=== PATIENT | female | born 1990 | race Caucasian/White ===

== ENCOUNTER → 2024-05-21 14:16 | Outpatient (REF) | payer OTHER, SELFPAY | LOC: RAD 14:16 | PROVIDERS: ATTENDING PHYSICIAN Student in an Organized Health Care Education/Training Program | DX: R35.0 Frequency of micturition (principal); R10.9 Unspecified abdominal pain | CPT/HCPCS: 76775 ==

== ENCOUNTER → 2024-09-08 07:51 | Outpatient (REF) | payer OTHER, SELFPAY | LOC: HWRAD 07:51 | PROVIDERS: ATTENDING PHYSICIAN Obstetrics & Gynecology; FAMILY PHYSICIAN Family Medicine | DX: C56.2 Malignant neoplasm of left ovary (principal); C56.1 Malignant neoplasm of right ovary | CPT/HCPCS: 71260; 74177; Q9967 ==

== ENCOUNTER 2024-11-30 06:43 | Emergency (ER) | payer OTHER, SELFPAY ==
[2024-11-30 06:49] VITALS: BP 103/80
--- NOTE | 2024-11-30 08:07 | ED.GENMED ---
History of Present Illness
General
Chief Complaint: Skin Surface Trauma
Source: patient
Exam Limitations: none
Time Seen by Provider: 11/30/24 07:44
History of Present Illness
History of Present Illness:
33-year-old female [id number] was cutting frozen chicken and her hand slipped and her hand slid down the blade. She presents with laceration to the right palm. She states she feels numb in her index finger and is having trouble opening
her hand all the way. Last tetanus was about 7 years ago. She is healthy otherwise. No other complaints
Past History
Past History
ED Past Medical History: Psychiatric (Panic disorder)
ED Past Surgical History: Other
Social History
Tobacco: Former smoker
Alcohol: Occasional
Drug: None
Living: with family
Family History
Family History: Other
Phy Exam
Physical Exam
Physical Exam:
General: Well-appearing female no acute distress
HEENT normocephalic atraumatic
Skin: 5 cm transverse laceration across the right palm proximal to the MCP flexion crease and abuts the thenar eminence. There is tendons noted through the wound. No significant bleeding currently. She has brisk capillary refill to all of her
fingers. She is having trouble abducting her fingers. She is able to initiate flexion of the FDS and FDP of all nerves on the right hand. She is able to move her thumb. She has decreased sensation to light touch over the radial aspect of the
right index finger
Course
Orders/Labs/Results
Orders:
Orders
11/30/24 08:04
Tetanus/Diphth/Acelpertussis [Adacel] 0.5 ml IM .ONCE ONE
11/30/24 09:00
Cephalexin Monohydrate [Keflex] 500 mg PO NOW STA
Vital Signs
Initial and Last Documented VS:
Initial Vital Signs
Temp Pulse Resp BP Pulse Ox
97.6 F 118 22 103/80 100
11/30/24 06:49 11/30/24 06:49 11/30/24 06:49 11/30/24 06:49 11/30/24 06:49
Last Documented Vital Signs
Temp Pulse Resp BP Pulse Ox
97.6 F 118 22 103/80 100
11/30/24 06:49 11/30/24 06:49 11/30/24 06:49 11/30/24 06:49 11/30/24 06:49
MDM/Problems Addressed
Differential Diagnosis Includes:
Right palmar laceration. Possible tendon and nerve involvement. Tetanus vaccine updated. Picture and video footage of the wound and function of the hand was taken and sent to orthopedics, hand surgeon.
*Critical Care Note
Total Time (30-74mins, 75-104mins- exclusive of procedures): Not Applicable
Update Note
Update Note:
Discussed findings with orthopedics who recommended loose closure of the skin and they will follow-up to plan wound exploration in the OR. Relayed this to the patient. The wound was copiously irrigated with saline solution then dried and closed
with 4-0 Prolene sutures in a simple interrupted fashion and a loose fashion to approximate the skin edge. Her hand was then cleaned. Adaptic gauze dressing gauze wrap and a volar splint was applied using 3 inch OCL cast padding and Min bandages.
Orthopedics will see her as soon as she leaves the emergency room in their office to reevaluate and discuss potential wound exploration. Keflex ordered tetanus ordered.
ED Attending Note
-
Portions of this chart may have been created with voice recognition software.� Occasional wrong word or��sound alike� substitutions may have occurred due to the inherent limitations of voice recognition software.
Discharge Plan
Departure
Patient Disposition: Home (Routine Discharge)
Date of Disposition: 11/30/24
Time of Disposition: 09:02
Patient with high blood pressure during this ER visit?: No
Discharge Problem:
Laceration
Instructions: Laceration Repair With Stitches (DC)
Prescriptions:
New
cephalexin 500 mg capsule
500 mg PO Q8H 7 Days Qty: 21 0RF
No Action
multivitamin 1 EACH tablet
1 ea PO DAILY
loratadine-pseudoephedrine 240 MG/10 MG tablet extended release 24 hr
1 tab PO DAILY
ondansetron 4 MG tablet,disintegrating
4 mg PO TIDPRN PRN (Reason: nausea) Qty: 20 0RF
Referrals:
Nael Bland DO [Family Provider] -
Dimas Tucker MD [Active] -
Activity Restrictions/Additional Instructions:
Please go directly to the ambulatory center from the emergency room to speak with the orthopedic team. You may need further wound exploration in the operating room. Take antibiotics as directed
Discharge Date and Time
Print Language: FAROESE
[2024-11-30] MEDS: ADACEL 0.5 ML IM (09:20)
[2024-11-30] MEDS: KEFLEX 250 MG/5 ML 500 MG PO (09:49)
== END 2024-11-30 09:57 | disposition home or self-care (01) ==
LOC: EMR 06:43
PROVIDERS: EMERGENCY PHYSICIAN Emergency Medicine; FAMILY PHYSICIAN Family Medicine
DX: S61.411A Laceration without foreign body of right hand, initial encounter (principal); R20.0 Anesthesia of skin; W26.0XXA Contact with knife, initial encounter; Y93.G1 Activity, food preparation and clean up; Z23 Encounter for immunization; F41.0 Panic disorder [episodic paroxysmal anxiety]; Z87.891 Personal history of nicotine dependence; Z91.048 Other nonmedicinal substance allergy status
CPT/HCPCS: 99282; 90471; 90715

== ENCOUNTER 2024-12-01 06:17 | Day surgery (SDC) | payer OTHER, SELFPAY ==
[2024-12-01 15:20] VITALS: BP 117/66
[2024-12-01 15:59] VITALS: BMI 29.1
[2024-12-01] MEDS: EMEND 40 MG PO (16:14)
[2024-12-01 19:08] VITALS: BP 117/66; BP 128/82
[2024-12-01 19:15] VITALS: BP 130/83
[2024-12-01 19:30] VITALS: BP 142/76
[2024-12-01 19:45] VITALS: BP 124/84
[2024-12-01 20:00] VITALS: BP 122/83
[2024-12-01] MEDS: BENADRYL 25 MG IV (20:00)
== END 2024-12-01 20:48 | disposition home or self-care (01) ==
LOC: SDS 06:17
PROVIDERS: ATTENDING PHYSICIAN Orthopaedic Surgery
DX: S66.120A Laceration of flexor muscle, fascia and tendon of right index finger at wrist and hand level, initial encounter (principal); S64.490A Injury of digital nerve of right index finger, initial encounter; W26.0XXA Contact with knife, initial encounter
CPT/HCPCS: 64910; 26350 ×2; C1763; C9355

== ENCOUNTER 2024-12-21 17:22 | Outpatient (RCR) | payer OTHER, SELFPAY | END 2024-12-21 23:59 | disposition home or self-care (01) | LOC: ROT 17:22 | PROVIDERS: ATTENDING PHYSICIAN Orthopaedic Surgery; FAMILY PHYSICIAN Family Medicine | DX: Z47.89 Encounter for other orthopedic aftercare (principal); S66.12 Laceration of flexor muscle, fascia and tendon of other and unspecified finger at wrist and hand level; Z73.6 Limitation of activities due to disability | CPT/HCPCS: 97010; 97110; 97140; 97166; 97535; 97760; 97763 ==

== ENCOUNTER 2025-01-20 16:49 | Outpatient (RCR) | payer OTHER, SELFPAY | END 2025-01-20 23:59 | disposition home or self-care (01) | LOC: ROT 16:49 | PROVIDERS: ATTENDING PHYSICIAN Orthopaedic Surgery; FAMILY PHYSICIAN Family Medicine | DX: Z47.89 Encounter for other orthopedic aftercare (principal); S66.12 Laceration of flexor muscle, fascia and tendon of other and unspecified finger at wrist and hand level; Z73.6 Limitation of activities due to disability | CPT/HCPCS: 97018; 97022; 97035; 97110; 97140 ==

== ENCOUNTER 2025-02-15 18:12 | Outpatient (RCR) | payer OTHER, SELFPAY | END 2025-02-15 23:59 | disposition home or self-care (01) | LOC: ROT 18:12 | PROVIDERS: ATTENDING PHYSICIAN Orthopaedic Surgery; FAMILY PHYSICIAN Family Medicine | DX: Z47.89 Encounter for other orthopedic aftercare (principal); S66.12 Laceration of flexor muscle, fascia and tendon of other and unspecified finger at wrist and hand level (principal); Z73.6 Limitation of activities due to disability | CPT/HCPCS: 97018; 97110; 97140 ==

== ENCOUNTER 2025-02-24 16:52 | Outpatient (RCR) | payer OTHER, SELFPAY | END 2025-03-17 23:59 | disposition home or self-care (01) | LOC: ROT 16:52 | PROVIDERS: ATTENDING PHYSICIAN Orthopaedic Surgery; FAMILY PHYSICIAN Family Medicine | DX: S66.12 Laceration of flexor muscle, fascia and tendon of other and unspecified finger at wrist and hand level (principal); Z73.6 Limitation of activities due to disability; Z47.89 Encounter for other orthopedic aftercare | CPT/HCPCS: 97018; 97110; 97140; 97535 ==